=== PATIENT | female | born 1995 | race American Indian/Alaskan Native ===

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

== ENCOUNTER 2017-01-24 01:08 | Emergency (ER) | payer MEDICAID ==
[2017-01-24 02:02] LABS: Basophils % (Auto) 0.7 % (0.0-1.8); Eosinophils % (Auto) 0.6 % (0.0-4.3); Hematocrit 42.3 % (30.3-42.9); Hemoglobin 14.3 gm/dl (10.1-14.3); Mean Corpuscular HGB Conc 34 % (30-34); Mean Corpuscular Hemoglobin 29 pg (28-32); Mean Corpuscular Volume 86 fl (79-97); Platelet Count 213 K/mm3 (140-440); Red Cell Distribution Width 13.4 % (13.2-15.2); White Blood Count 9.8 K/mm3 (4.5-11.0)
[2017-01-24 03:03] LABS: Urine Drugs of Abuse Note Disclamer
[2017-01-24 03:04] VITALS: BP 120/66
[2017-01-24 03:14] LABS: Bilirubin,Urine NEG (Negative); Blood,Urine NEG (Negative); Ketones,Urine TR mg/dL (Negative); Leukocyte Esterase,Urine LG (Negative); Mucus,Urine 1+ /HPF; Nitrite,Urine NEG (Negative); Urobilinogen,Urine < 2.0 mg/dL (<2.0)
[2017-01-24 03:21] LABS: BUN/Creatinine Ratio 8.33; Blood Urea Nitrogen 10 mg/dL (7-17); Calcium 9.8 mg/dL (8.4-10.2); Carbon Dioxide 18 mmol/L (22-30); Chloride 102.7 mmol/L (98-107); Glucose 128 mg/dL (65-100); Sodium 141 mmol/L (137-145)
--- NOTE | 2017-01-24 03:28 | Emergency Department Report ---
ED General Adult HPI - General Chief complaint: Psych Stated complaint: MH EVAL Time Seen by Provider: 01/24/17 01:50 Source: patient, RN notes reviewed, old records reviewed Mode of arrival: Ambulatory Limitations: No Limitations - History of Present Illness Initial comments: This is a 21-year-old female. She is previously unknown to me. Patient has a past medical history of autism, ADHD. Patient reports that she spends the recent past 9 days with her boyfriend. She came home, and then reports that her mother became upset when the patient indicated that she wants to leave the house and then see her boyfriend. She reports that her mother got upset and brought her here to further evaluation. The patient to me denies headache, neck pain, chest pain, abdominal pain and shortness of breath. She denies physical and sexual assault. She denies irritative and obstructive urinary symptoms. She denies hallucinations. She denies access to guns and firearms. Severity scale (0 -10): 0 Improves with: none Worsens with: none Associated Symptoms: denies other symptoms - Related Data Home Medications Medication Instructions Recorded Confirmed Last Taken Lisdexamfetamine Dimesylate 70 mg PO QAM 01/24/17 01/24/17 01/23/17 [Vyvanse] [place] Carbonate ER [Lithobid ER] 300 mg PO QHS 01/24/17 01/24/17 01/23/17 lamoTRIgine [LaMICtal Xr] 200 mg PO QHS 01/24/17 01/24/17 01/23/17 risperiDONE [RisperiDONE] 1 mg PO QDAY 01/24/17 01/24/17 01/23/17 Allergies Allergy/AdvReac Type Severity Reaction Status Date / Time No Known Allergies Allergy Verified 10/25/16 01:43 ED Review of Systems ROS: Stated complaint: MH EVAL Other details as noted in HPI Constitutional: denies: fever Eyes: denies: vision change ENT: denies: epistaxis Respiratory: denies: cough Cardiovascular: denies: chest pain Gastrointestinal: denies: abdominal pain Skin: denies: lesions Neurological: denies: weakness Psychiatric: anxiety. denies: homicidal thoughts, suicidal thoughts ED Past Medical Hx - Past Medical History Previous Medical History?: Yes Hx Psychiatric Treatment: Yes (bipolar) Hx Asthma: Yes Additional medical history: ADHD PTSD Autism - Surgical History Past Surgical History?: No - Social History Smoking Status: Never Smoker Substance Use Type: None - Medications Home Medications: Home Medications Medication Instructions Recorded Confirmed Last Taken Type Lisdexamfetamine Dimesylate 70 mg PO QAM 01/24/17 01/24/17 01/23/17 History [Vyvanse] [place] Carbonate ER [Lithobid ER] 300 mg PO QHS 01/24/17 01/24/17 01/23/17 History lamoTRIgine [LaMICtal Xr] 200 mg PO QHS 01/24/17 01/24/17 01/23/17 History risperiDONE [RisperiDONE] 1 mg PO QDAY 01/24/17 01/24/17 01/23/17 History ED Physical Exam - General Limitations: No Limitations General appearance: alert, anxious - Head Head exam: Present: atraumatic, normocephalic - Eye Eye exam: Present: normal appearance, PERRL, EOMI, other (visual acuity intact to finger counting, color perception, reading at a close distance). Absent: nystagmus - ENT ENT exam: Present: normal exam, normal orophraynx, mucous membranes moist, normal external ear exam - Neck Neck exam: Present: normal inspection, full ROM. Absent: tenderness, meningismus - Respiratory Respiratory exam: Present: normal lung sounds bilaterally. Absent: respiratory distress, wheezes, rales, rhonchi, stridor, chest wall tenderness, accessory muscle use, decreased breath sounds, prolonged expiratory - Cardiovascular Cardiovascular Exam: Present: normal rhythm, tachycardia, normal heart sounds. Absent: bradycardia, irregular rhythm, systolic murmur, diastolic murmur, rubs, gallop - GI/Abdominal GI/Abdominal exam: Present: soft, normal bowel sounds. Absent: distended, tenderness, guarding, rebound, rigid - Extremities Exam Extremities exam: Present: normal inspection, full ROM, normal capillary refill. Absent: tenderness, pedal edema, joint swelling, calf tenderness - Back Exam Back exam: Present: normal inspection, full ROM. Absent: tenderness, CVA tenderness (R), CVA tenderness (L), muscle spasm, paraspinal tenderness, vertebral tenderness - Neurological Exam Neurological exam: Present: alert, oriented X3, normal gait, other (Extraocular movements intact. Tongue midline. No facial droop. Facial sensation intact to light touch in the V1, V2, V3 distribution bilaterally. 5 and 5 strength in 4 extremities.. Sensation is intact to light touch in 4 extremities.). Absent : motor sensory deficit - Psychiatric Psychiatric exam: Present: anxious. Absent: homicidal ideation, suicidal ideation - Skin Skin exam: Present: warm, dry, intact, normal color. Absent: rash ED Course Vital Signs 01/24/17 01/24/17 01:22 03:00 Temperature 98.7 F 98.3 F Pulse Rate 152 H 105 H Respiratory 24 16 Rate Blood Pressure 162/96 Blood Pressure 120/66 [Left] O2 Sat by Pulse 100 93 Oximetry ED Medical Decision Making - Lab Data Result diagrams: 01/24/17 01:47 01/24/17 01:47 Vital Signs 01/24/17 01/24/17 01:22 03:00 Temperature 98.7 F 98.3 F Pulse Rate 152 H 105 H Respiratory 24 16 Rate Blood Pressure 162/96 Blood Pressure 120/66 [Left] O2 Sat by Pulse 100 93 Oximetry Lab Results 01/24/17 01/24/17 01/24/17 Range/Units 01:47 01:47 01:47 WBC 9.8 (4.5-11.0) K/mm3 RBC 4.90 (3.65-5.03) M/mm3 Hgb 14.3 (10.1-14.3) gm/dl Hct 42.3 (30.3-42.9) % MCV 86 (79-97) fl MCH 29 (28-32) pg MCHC 34 (30-34) % RDW 13.4 (13.2-15.2) % Plt Count 213 (140-440) K/mm3 Lymph % (Auto) 19.2 (13.4-35.0) % Heard % (Auto) 4.3 (0.0-7.3) % Eos % (Auto) 0.6 (0.0-4.3) % Baso % (Auto) 0.7 (0.0-1.8) % Lymph # 1.9 (1.2-5.4) K/mm3 Heard # 0.4 (0.0-0.8) K/mm3 Eos # 0.1 (0.0-0.4) K/mm3 Baso # 0.1 (0.0-0.1) K/mm3 Seg Neutrophils % 75.2 H (40.0-70.0) % Seg Neutrophils # 7.4 (1.8-7.7) K/mm3 Sodium 141 (137-145) mmol/L Chloride 102.7 (98-107) mmol/L Carbon Dioxide 18 L (22-30) mmol/L BUN 10 (7-17) mg/dL Creatinine 1.2 (0.7-1.2) mg/dL Estimated GFR > 60 ml/min BUN/Creatinine Ratio 8.33 % Glucose 128 H (65-100) mg/dL Calcium 9.8 (8.4-10.2) mg/dL Total Creatine Kinase (30-135) units/L Urine Color (Yellow) Urine Turbidity (Clear) Urine pH (5.0-7.0) Ur Specific [place] (1.003-1.030) Urine Protein (Negative) mg/dL Urine Glucose (UA) (Negative) mg/dL Urine Ketones (Negative) mg/dL Urine Blood (Negative) Urine Nitrite (Negative) Urine Bilirubin (Negative) Urine Urobilinogen (<2.0) mg/dL Ur Leukocyte Esterase (Negative) Urine WBC (Auto) (0.0-6.0) /HPF Urine RBC (Auto) (0.0-6.0) /HPF U Epithel Cells (Auto) (0-13.0) /HPF Hyaline Casts /LPF Urine Mucus /HPF Urine HCG, Qual (Negative) Salicylates (2.8-20.0) mg/dL Urine Opiates Screen Urine Methadone Screen Acetaminophen (10.0-30.0) ug/mL Ur Barbiturates Screen Ur Phencyclidine Scrn U Benzodiazepines Scrn Urine Cocaine Screen U Marijuana (THC) Screen Plasma/Serum Alcohol < 0.01 (0-0.07) gm% 01/24/17 01/24/17 01/24/17 Range/Units 01:50 01:50 01:50 WBC (4.5-11.0) K/mm3 RBC (3.65-5.03) M/mm3 Hgb (10.1-14.3) gm/dl Hct (30.3-42.9) % MCV (79-97) fl MCH (28-32) pg MCHC (30-34) % RDW (13.2-15.2) % Plt Count (140-440) K/mm3 Lymph % (Auto) (13.4-35.0) % Heard % (Auto) (0.0-7.3) % Eos % (Auto) (0.0-4.3) % Baso % (Auto) (0.0-1.8) % Lymph # (1.2-5.4) K/mm3 Heard # (0.0-0.8) K/mm3 Eos # (0.0-0.4) K/mm3 Baso # (0.0-0.1) K/mm3 Seg Neutrophils % (40.0-70.0) % Seg Neutrophils # (1.8-7.7) K/mm3 Sodium (137-145) mmol/L Chloride (98-107) mmol/L Carbon Dioxide (22-30) mmol/L BUN (7-17) mg/dL Creatinine (0.7-1.2) mg/dL Estimated GFR ml/min BUN/Creatinine Ratio % Glucose (65-100) mg/dL Calcium (8.4-10.2) mg/dL Total Creatine Kinase 342 H (30-135) units/L Urine Color (Yellow) Urine Turbidity (Clear) Urine pH (5.0-7.0) Ur Specific [place] (1.003-1.030) Urine Protein (Negative) mg/dL Urine Glucose (UA) (Negative) mg/dL Urine Ketones (Negative) mg/dL Urine Blood (Negative) Urine Nitrite (Negative) Urine Bilirubin (Negative) Urine Urobilinogen (<2.0) mg/dL Ur Leukocyte Esterase (Negative) Urine WBC (Auto) (0.0-6.0) /HPF Urine RBC (Auto) (0.0-6.0) /HPF U Epithel Cells (Auto) (0-13.0) /HPF Hyaline Casts /LPF Urine Mucus /HPF Urine HCG, Qual (Negative) Salicylates < 0.3 L (2.8-20.0) mg/dL Urine Opiates Screen Urine Methadone Screen Acetaminophen < 15.0 (10.0-30.0) ug/mL Ur Barbiturates Screen Ur Phencyclidine Scrn U Benzodiazepines Scrn Urine Cocaine Screen U Marijuana (THC) Screen Plasma/Serum Alcohol (0-0.07) gm% 01/24/17 01/24/17 Range/Units 02:40 02:40 WBC (4.5-11.0) K/mm3 RBC (3.65-5.03) M/mm3 Hgb (10.1-14.3) gm/dl Hct (30.3-42.9) % MCV (79-97) fl MCH (28-32) pg MCHC (30-34) % RDW (13.2-15.2) % Plt Count (140-440) K/mm3 Lymph % (Auto) (13.4-35.0) % Heard % (Auto) (0.0-7.3) % Eos % (Auto) (0.0-4.3) % Baso % (Auto) (0.0-1.8) % Lymph # (1.2-5.4) K/mm3 Heard # (0.0-0.8) K/mm3 Eos # (0.0-0.4) K/mm3 Baso # (0.0-0.1) K/mm3 Seg Neutrophils % (40.0-70.0) % Seg Neutrophils # (1.8-7.7) K/mm3 Sodium (137-145) mmol/L Chloride (98-107) mmol/L Carbon Dioxide (22-30) mmol/L BUN (7-17) mg/dL Creatinine (0.7-1.2) mg/dL Estimated GFR ml/min BUN/Creatinine Ratio % Glucose (65-100) mg/dL Calcium (8.4-10.2) mg/dL Total Creatine Kinase (30-135) units/L Urine Color Yellow (Yellow) Urine Turbidity Clear (Clear) Urine pH 7.0 (5.0-7.0) Ur Specific [place] 1.024 (1.003-1.030) Urine Protein 30 mg/dl (Negative) mg/dL Urine Glucose (UA) Neg (Negative) mg/dL Urine Ketones Tr (Negative) mg/dL Urine Blood Neg (Negative) Urine Nitrite Neg (Negative) Urine Bilirubin Neg (Negative) Urine Urobilinogen < 2.0 (<2.0) mg/dL Ur Leukocyte Esterase Lg (Negative) Urine WBC (Auto) 34.0 H (0.0-6.0) /HPF Urine RBC (Auto) 3.0 (0.0-6.0) /HPF U Epithel Cells (Auto) 8.0 (0-13.0) /HPF Hyaline Casts 2 /LPF Urine Mucus 1+ /HPF Urine HCG, Qual Negative (Negative) Salicylates (2.8-20.0) mg/dL Urine Opiates Screen Presumptive negative Urine Methadone Screen Presumptive negative Acetaminophen (10.0-30.0) ug/mL Ur Barbiturates Screen Presumptive negative Ur Phencyclidine Scrn Presumptive negative U Benzodiazepines Scrn Presumptive negative Urine Cocaine Screen Presumptive negative U Marijuana (THC) Screen Presumptive negative Plasma/Serum Alcohol (0-0.07) gm% - Medical Decision Making Differential diagnosis: Mood disorder, general medical evaluation, chronic autism, chronic PTSD Assessment and plan: 21-year-old female who is alert and oriented 3, has a GCS of 15, NIH score of 0, walks with a steady gait, who is neither homicidal nor suicidal. She does not require a 1013. She has no medical complaints at this time. She denies irritative and obstructive urinary symptoms. Laboratory studies reviewed, unremarkable. Patient denies physical and sexual assault. Does not have any medical complaints at this time. Tachycardia resolved on physical exam. Critical care attestation.: If time is entered above; I have spent that time in minutes in the direct care of this critically ill patient, excluding procedure time. ED Disposition Clinical Impression: General medical exam Disposition: DC-01 TO HOME OR SELFCARE Is pt being admited?: No Does the pt Need Aspirin: No Condition: Stable Instructions: Mood Disorders (ED) Additional Instructions: Continue current outpatient medications. Follow up with a primary care doctor within the next 7-10 days. Please note that urinalysis demonstrated nonspecific abnormalities with urine sample. This should be followed up by her primary care doctor is recommended. Return to the ER right away with fevers, chills, chest pain, shortness of breath, projectile vomiting, confusion, inability to tolerate liquid feeds. Referrals: PRANAV CULLEN MD [Primary Care Provider] - 3-5 Days ELIAS SHELTON MD [Staff Physician] - 3-5 Days [facility] [Provider Group] - 3-5 Days
[2017-01-24 03:33] LABS: Anion Gap 24 mmol/L; Potassium 4.1 mmol/L (3.6-5.0)
== END 2017-01-24 11:12 | disposition home or self-care (01) ==
LOC: EEVIPCON 01:08 → ED 01:08
DX: Z00.8 Encounter for other general examination (principal); F31.9 Bipolar disorder, unspecified; J45.909 Unspecified asthma, uncomplicated; F90.9 Attention-deficit hyperactivity disorder, unspecified type; F43.10 Post-traumatic stress disorder, unspecified
CPT/HCPCS: 36415; 80048; 80178; 80307; 81001; 81025; 82550; 85025; 87086; 99283; G0480; 80320

== ENCOUNTER 2018-01-11 22:36 | Emergency (ER) | payer MEDICAID ==
[2018-01-12 01:12] LABS: Basophils # (Auto) 0.1 K/mm3 (0.0-0.1); Basophils % (Auto) 0.7 % (0.0-1.8); Eosinophils # (Auto) 0.1 K/mm3 (0.0-0.4); Eosinophils % (Auto) 1.5 % (0.0-4.3); Hematocrit 38.4 % (30.3-42.9); Lymphocytes # (Auto) 2.4 K/mm3 (1.2-5.4); Lymphocytes % (Auto) 30.6 % (13.4-35.0); Mean Corpuscular HGB Conc 34 % (30-34); Mean Corpuscular Hemoglobin 30 pg (28-32); Mean Corpuscular Volume 88 fl (79-97); Monocytes # (Auto) 0.5 K/mm3 (0.0-0.8); Monocytes % (Auto) 6.4 % (0.0-7.3); Platelet Count 195 K/mm3 (140-440); Red Blood Count 4.35 M/mm3 (3.65-5.03); Red Cell Distribution Width 13.7 % (13.2-15.2)
[2018-01-12 01:14] LABS: Bacteria,Urine 1+ /HPF (Negative); Bilirubin,Urine NEG (Negative); Blood,Urine LG (Negative); Color,Urine Straw (Yellow); Protein,Urine <15 mg/dL mg/dL (Negative); Urobilinogen,Urine < 2.0 mg/dL (<2.0)
[2018-01-12 01:19] LABS: Amphetamine Screen,Urine PRESUMPTIVE NEGATIVE; Benzodiazepines Screen,Urine PRESUMPTIVE NEGATIVE; Cannabinoid Screen,Urine PRESUMPTIVE NEGATIVE; Cocaine Screen,Urine PRESUMPTIVE NEGATIVE; Methadone Screen,Urine PRESUMPTIVE NEGATIVE; Opiate Screen,Urine PRESUMPTIVE NEGATIVE
[2018-01-12 01:29] LABS: BUN/Creatinine Ratio 18; Blood Urea Nitrogen 14 mg/dL (7-17); Calcium 9.5 mg/dL (8.4-10.2); Hemolysis Index 1
--- NOTE | 2018-01-12 02:45 | Emergency Department Report ---
HPI - General Chief Complaint: Psych Time Seen by Provider: 01/12/18 02:13 - HPI HPI: This is a 22-year-old female presents to the emergency department, brought in by her mother, with complaint of suicidal ideations. The patient has a history of bipolar disorder, ADHD, PTSD and autism. She says that she went missing for 4 days as she eloped from the house. When asked why, she says "I don't want to live there anymore." She denies any auditory or visual hallucinations or any homicidal ideations. She does not have any particular plan as to how she would end her life. She has a past medical history of asthma. She says that she has not on any medications for her psychiatric diagnosis. ED Past Medical Hx - Past Medical History Hx Psychiatric Treatment: Yes (bipolar) Hx Asthma: Yes Additional medical history: ADHD PTSD Autism - Surgical History Past Surgical History?: No - Social History Smoking Status: Never Smoker Substance Use Type: None - Medications Home Medications: Home Medications Medication Instructions Recorded Confirmed Last Taken Type Lisdexamfetamine Dimesylate 70 mg PO QAM 01/24/17 01/12/18 01/23/17 History [Vyvanse] [place] Carbonate ER [Lithobid ER] 300 mg PO QHS 01/24/17 01/12/18 01/23/17 History Nitrofurantoin [place]/M-Cryst 100 mg PO Q12HR #10 capsule 01/24/17 01/12/18 Unknown Rx [Macrobid CAP] lamoTRIgine [LaMICtal Xr] 200 mg PO QHS 01/24/17 01/12/18 01/23/17 History risperiDONE [RisperiDONE] 1 mg PO QDAY 01/24/17 01/12/18 01/23/17 History ED Review of Systems ROS: Stated complaint: SUICIDAL IDEATIONS Other details as noted in HPI Comment: All other systems reviewed and negative Constitutional: denies: chills, fever Eyes: denies: eye pain, eye discharge, vision change ENT: denies: ear pain, throat pain Respiratory: denies: cough, shortness of breath, wheezing Cardiovascular: denies: chest pain, palpitations Gastrointestinal: denies: abdominal pain, nausea, diarrhea Genitourinary: denies: urgency, dysuria, discharge Musculoskeletal: denies: back pain, joint swelling, arthralgia Skin: denies: rash, lesions Neurological: denies: headache, weakness, paresthesias Psychiatric: suicidal thoughts. denies: auditory hallucinations, visual hallucinations, homicidal thoughts Physical Exam - Physical Exam Vital Signs: Vital Signs 01/11/18 01/12/18 23:33 00:45 Temperature 98.3 F 98.3 F Pulse Rate 78 79 Respiratory 18 18 Rate Blood Pressure 114/91 114/91 O2 Sat by Pulse 100 100 Oximetry Physical Exam: GENERAL: The patient is well-developed well-nourished. HENT: Normocephalic. Atraumatic. Patient has moist mucous membranes. EYES: Extraocular motions are intact. NECK: Supple. Trachea is midline. CHEST/LUNGS: Clear to auscultation. There is no respiratory distress noted. HEART/CARDIOVASCULAR: Regular. There is no tachycardia. There is no murmur. ABDOMEN: Abdomen is soft, nontender. Patient has normal bowel sounds. SKIN: Skin is warm and dry. NEURO: The patient is awake, alert. The patient is cooperative. The patient has no focal neurologic deficits. The patient has normal speech. MUSCULOSKELETAL: There is no tenderness or deformity. There is no limitation range of motion. There is no evidence of acute injury. ED Course Vital Signs 01/11/18 01/12/18 23:33 00:45 Temperature 98.3 F 98.3 F Pulse Rate 78 79 Respiratory 18 18 Rate Blood Pressure 114/91 114/91 O2 Sat by Pulse 100 100 Oximetry ED Medical Decision Making - Lab Data Result diagrams: 01/12/18 00:58 01/12/18 00:58 - Medical Decision Making Patient's labs are unremarkable. Vital signs stable throughout her ED course. The patient has a history of bipolar disorder, ADHD, PTSD and autism. She comes in with complaint of suicidal ideations without any plan. She also says that she was missing for the past 4 days. The patient's mother is not here currently and therefore I cannot verify if the patient was in fact missing. However the patient was brought in by her mother due to some recent concerns which could include the patient missing, suicidal ideations, or a combination. Since the patient is autistic, a 1013 cannot be filled out. However I do feel the patient requires evaluation by a psychiatric team. She was seen by the psych degreaser Alpesh who is going to set her up to see the psychiatric team later today for further assessment and evaluation to see if she needs inpatient placement. Currently she would be medically cleared for psychiatric placement. - Differential Diagnosis bipolar disorder, schizophrenia, schizoaffective, depression Critical Care Time: No Critical care attestation.: If time is entered above; I have spent that time in minutes in the direct care of this critically ill patient, excluding procedure time. ED Disposition Clinical Impression: Suicidal ideations Disposition: DC/TX-65 PSY HOSP/PSY UNIT Is pt being admited?: No Condition: Stable Referrals: PRIMARY CARE, [Primary Care Provider] - 3-5 Days Time of Disposition: 05:05
--- NOTE | 2018-01-12 14:28 | Consultation ---
History of Present Illness - Reason for Consult Consult date: 01/12/18 Reason for consult: Initial Psychiatric Consult - Chief Complaint Chief complaint: " I was missing " - History of Present Psychiatric Illness Patient is a 22-year-old female who presents to the emergency department, brought in by her stepmother, with complaint of suicidal ideations. Patient has a PPHx Schizoaffective Disorder, Bipolar Type, ADHD, PTSD and Autism. She says that she went missing for 4 days as she eloped from the house. She verbalizes " I was at my boyfriend house." She endorses suicidal ideation without a plan and auditory hallucinations telling her to " leave me alone." She denies HI and paranoid thoughts. She reports good energy, sleep, and appetite. Provider attempted to contact parents at [phone] (2:42) per patient's consent. No answer. Father called back and provided his 's contact information [phone] (2:46). Provider spoke with stepmother. Per stepmother, patient is stalking her boyfriend, however he has a TPO against her. Currently, patient's father and stepmother are trying to gain guardianship. She states that patient is refusing medication at home. She believes that patient is a danger to self and others. Current Psychiatric Medications: Seroquel, Risperdal, Depakote Past Psychiatric Hospitalization: Schizoaffective Disoder, Bipolar Type( 2013); 2 previous inpatient hospitalizations ( [facility] and [facility]); Outpatient psychiatrist- Dr. Benitez; No previous suicide attempts. Past Psychiatric Medication Trials: " I don't know." History of Trauma/Abuse: Patient denies sexual, physical and mental abuse. Drug/Alcohol Abuse History: Patient denies. UDS negative. Social History: 12th grade-highest level of education; Lives with parents in [place], [place]; Unemployed; Good support system- "family"; No children; Single Family History: Patient denies family history of psychiatric illness and substance abuse. Medications and Allergies Allergies Allergy/AdvReac Type Severity Reaction Status Date / Time No Known Allergies Allergy Verified 10/25/16 01:43 Home Medications Medication Instructions Recorded Confirmed Last Taken Type Lisdexamfetamine Dimesylate 70 mg PO QAM 01/24/17 01/12/18 01/23/17 History [Vyvanse] [place] Carbonate ER [Lithobid ER] 300 mg PO QHS 01/24/17 01/12/18 01/23/17 History Nitrofurantoin [place]/M-Cryst 100 mg PO Q12HR #10 capsule 01/24/17 01/12/18 Unknown Rx [Macrobid CAP] lamoTRIgine [LaMICtal Xr] 200 mg PO QHS 01/24/17 01/12/18 01/23/17 History risperiDONE [RisperiDONE] 1 mg PO QDAY 01/24/17 01/12/18 01/23/17 History Mental Status Exam - Vital signs Last Vital Signs Temp 98.3 F 01/12/18 00:45 Pulse 79 01/12/18 00:45 Resp 18 01/12/18 00:45 BP 114/91 01/12/18 00:45 Pulse Ox 100 01/12/18 00:45 - Exam Narrative exam: Mental Status Exam General Appearance: Causally Dressed-hospital gown Eye Contact: Intermittent Orientation: Alert and oriented x 4 ( person, place, time, and situation) Attitude/Behavior: Cooperative Sensorium: Distracted Psychomotor & Musculoskeletal Activity: Laying in bed Mood: Anxious and depressed Affect: Constricted Speech/Language: Regular rate and tone Thought Processes: Circumstantial Thought Content: Impoverished Perception: + Auditory hallucinations- " leave me alone" Concentration/Attention: Impaired Suicidal Ideations/Plan: + suicidal ideations without a plan Homicidal Ideations/Plan: Patient denies Judgment: Poor Insight: Poor Results Result Diagrams: 01/12/18 00:58 01/12/18 00:58 Abnormal lab results 01/12/18 01/12/18 01/12/18 Range/Units 00:58 00:58 01:00 Urine WBC (Auto) 8.0 H (0.0-6.0) /HPF Salicylates < 0.3 L (2.8-20.0) mg/dL Acetaminophen < 5.0 L (10.0-30.0) ug/mL All other labs normal. Assessment and Plan Assessment and plan: Impression: Hx of Schizaffective Disorder, Bipolar Type, ADHD, PTSD, and Autism. Today the patient is calm and cooperative during the assessment. Thought content impoverished. She endorses suicidal ideations without a plan and auditory hallucinations " leave me alone." She denies HI and paranoid thoughts. UDS negative. Recommendation/Plan: 1. Continue 1013 with placement to inpatient psychiatric services. 2. Will collect Depakote level STAT. Will wait to restart Depakote until the Depakote level has resulted. 3. Will restart home medications Depakote 250mg po BID mood, Seroquel 50mg po QHS mood/psychosis, and Risperdal 0.5mg po BID psychosis. Patient educated on the metabolic side effects of the medication. 4. Will monitor mood, psychosis, sleep, appetite, compliance, and side effects.
[2018-01-12] MEDS: RisperDAL PO SCH (22:00)
[2018-01-13] MEDS: RisperDAL PO SCH (10:25)
[2018-01-14 07:38] LABS: Alanine Aminotransferase 8 units/L (7-56); Lipase 27 units/L (13-60)
[2018-01-14] MEDS: RisperDAL PO SCH ×2 (09:09→10:34)
[2018-01-14 11:13] VITALS: BP 91/55
--- NOTE | 2018-01-14 12:12 | Progress Note ---
Subjective - Reason for Consult Consult date: 01/14/18 Reason for consult: Psychiatry Follow-up - Chief Complaint Chief complaint: "I am good" 22-year-old female who presents to the emergency department, brought in by her stepmother, with complaint of suicidal ideations. Patient has a PPHx Schizoaffective Disorder, Bipolar Type, ADHD, PTSD and Autism. Today the patient is calm, but disorganized during the assessment. She had to be redirected several times to keep her on topic. She stated that she wasn't missing for the 4 days. She stated being with some geraldo, possibly with her boyfriend. Per the record there's a TPO against this patient for stalking a male. She was not able to explain her actions when asked. She denies SI/HI's and AVH's. She denies any side effects of her medications. Mental Status Exam - Vital signs Last Vital Signs Temp 97.7 F 01/14/18 11:13 Pulse 82 01/14/18 11:13 Resp 18 01/14/18 11:13 BP 91/55 01/14/18 11:13 Pulse Ox 99 01/14/18 11:13 - Exam Narrative exam: MSE: Appearance: calm, disheveled Behavior: regular eye contact Speech: regular rate and tone Mood: "okay" Affect: congruent to mood Thought Process: disorganized Thought Content: denies SI/HI's and AVH's Motor Activity: ambulatory Cognition: A/O x 3 Insight: poor Judgment: variable Assessment and Plan Impression: Hx of Schizaffective Disorder, Bipolar Type, ADHD, PTSD, and Autism. Today the patient is calm and cooperative during the assessment. Recommendation/Plan: Continue 1013 with placement to [facility] today.
== END 2018-01-14 13:06 ==
LOC: EEVIPCON 22:36 → ED 22:36
DX: F31.9 Bipolar disorder, unspecified (principal); J45.909 Unspecified asthma, uncomplicated
CPT/HCPCS: 36415; 80048; 80164; 80307; 81001; 82150; 83690; 84075; 84450; 84460; 84703; 85025; 99285; G0480; 80320